=== PATIENT | male | born 1970 | race Caucasian/White ===

== ENCOUNTER → 2022-06-07 | Outpatient (CLI) | payer OTHER ==
[~2022-06-07] MED LIST: CETI-24 PO; EXCETAB22 PO; FAMO20TA PO; K-TA10TA PO; LEVOTAB10 PO; LEXA1TAB2 PO; LOSA100T45 PO; PRAZ2CAP PO; TOPA1TAB PO; VITAD1000T PO
== END ==
LOC: M LABSMTC 11:24
PROVIDERS: ATTEND Anesthesiology
DX: Z01.812 Encounter for preprocedural laboratory examination (principal); Z11.52 Encounter for screening for COVID-19

== ENCOUNTER 2022-06-10 08:52 | Day surgery (SDC) | payer OTHER ==
[~2022-06-10] VITALS: Ht 177.8 cm; Wt 97.7 kg
[~2022-06-10 08:52] MED LIST changes: +NS 1,000 ML IV ONE
[2022-06-10] MEDS ORDERED: fentaNYL 100 MCG/2 ML INJECTION As Ordered ONE (12:01)
[2022-06-10] MEDS ORDERED: LIDOCAINE 2% 100MG/5ML SDV (FOR ANES.) As Ordered ONE (12:04)
[2022-06-10] MEDS ORDERED: propofoL 200 MG/20 ML VIAL As Ordered ONE ×2 (12:04→12:22)
[2022-06-10 13:10] VITALS: BP 154/95
== END 2022-06-10 13:48 | disposition home or self-care (01) ==
LOC: M OPP 08:52
PROVIDERS: ATTEND Internal Medicine Gastroenterology
DX: Z12.11 Encounter for screening for malignant neoplasm of colon (principal); K63.5 Polyp of colon; K57.30 Diverticulosis of large intestine without perforation or abscess without bleeding; K64.4 Residual hemorrhoidal skin tags; K64.8 Other hemorrhoids; K22.89 Other specified disease of esophagus; K29.70 Gastritis, unspecified, without bleeding; K29.80 Duodenitis without bleeding; K31.A15 Gastric intestinal metaplasia without dysplasia, involving multiple sites; F17.200 Nicotine dependence, unspecified, uncomplicated; Z79.1 Long term (current) use of non-steroidal anti-inflammatories (NSAID); Z79.899 Other long term (current) drug therapy; Z88.0 Allergy status to penicillin; Z88.8 Allergy status to other drugs, medicaments and biological substances; G62.9 Polyneuropathy, unspecified; G47.30 Sleep apnea, unspecified; I10 Essential (primary) hypertension; F43.10 Post-traumatic stress disorder, unspecified
CPT/HCPCS: 43239; 45385; 88305; J3010

== ENCOUNTER 2023-01-07 11:56 | Day surgery (SDC) | payer OTHER ==
[~2023-01-07] VITALS: Ht 182.9 cm; Wt 101.0 kg
[2023-01-07] MEDS: NS 1,000 ML IV ONE (06:00)
[~2023-01-07 11:56] MED LIST changes: -K-TA10TA PO; -LOSA100T45 PO; +LOSA100T46 PO; -NS 1,000 ML IV ONE; +POTA-164 PO
[2023-01-07] MEDS ORDERED: propofoL 200 MG/20 ML VIAL As Ordered ONE (13:03)
[2023-01-07] MEDS ORDERED: LIDOCAINE 2% 100MG/5ML SDV (FOR ANES.) As Ordered ONE (13:03)
[2023-01-07] MEDS ORDERED: ONDANSETRON 4MG 2ML VIAL As Ordered ONE (13:51)
[2023-01-07] MEDS ORDERED: ACETAMINOPHEN 1000MG 100ML IV BAG As Ordered ONE (13:52)
[2023-01-07] MEDS ORDERED: fentaNYL 100 MCG/2 ML INJECTION As Ordered ONE (13:59)
[2023-01-07 14:42] VITALS: TEMP 97.9
[2023-01-07 15:05] VITALS: BP 140/98; O2SAT 96
== END 2023-01-07 18:25 | disposition home or self-care (01) ==
LOC: M OPP 11:56
PROVIDERS: ATTEND Internal Medicine Gastroenterology
DX: K44.9 Diaphragmatic hernia without obstruction or gangrene (principal); K22.89 Other specified disease of esophagus; K31.89 Other diseases of stomach and duodenum; D62 Acute posthemorrhagic anemia; K29.01 Acute gastritis with bleeding
CPT/HCPCS: 43239; 88305; J0131; J2405; J3010

== ENCOUNTER → 2023-02-09 | Outpatient (CLI) | payer OTHER ==
[2023-02-09 17:24] LABS: BASO % 0.3 % (0.0-1.0); EOS # 0.4 10^3/uL (0.0-0.5); EOS % 5.6 % (0.0-3.0); HEMATOCRIT 47.3 % (42.0-52.0); HEMOGLOBIN 16.4 g/dl (13.5-17.5); LYMPH # 3.2 10^3/uL (1.5-5.0); LYMPH % 40.5 % (24.0-44.0); MEAN CORPUSCULAR HEMOGLOBIN 33.3 pg (27.0-33.0); MEAN CORPUSCULAR HGB CONC 34.7 g/dl (32.0-36.5); MEAN CORPUSCULAR VOLUME 95.9 fl (80.0-96.0); MONO # 0.8 10^3/uL (0.0-0.8); NEUTROPHILS # 3.4 10^3/uL (1.5-8.5); NEUTROPHILS % 42.6 % (36.0-66.0); PLATELET COUNT, AUTOMATED 217 10^3/uL (150-450); RED BLOOD COUNT 4.93 10^6/uL (4.30-6.10); WHITE BLOOD COUNT 7.9 10^3/uL (4.0-10.0)
[2023-02-09 17:42] LABS: BLOOD UREA NITROGEN 14 MG/DL (9-23); CREATININE FOR GFR 0.96 MG/DL (0.70-1.30); FERRITIN 49.2 NG/ML (10.5-307.3); GLOMERULAR FILTRATION RATE > 60.0 (>56); IMMUNOGLOBULIN A 253.5 MG/DL (40-350); IRON (FE) 75 UG/DL (65-175); PERCENT SATURATION 20.8 % (19.7-50.0); TOTAL IRON BINDING CAPACITY 360 UG/DL (250-425)
[2023-02-09 17:43] LABS: FOLATE 6.5 NG/ML (>5.4); VITAMIN B12 LEVEL 342 PG/ML (211-911)
[2023-02-11 17:07] LABS: TISSUE TRANSGLUTAMINASE IgA <2 U/mL (0-3); UNITSIGA FOR GLIADIN IGA 6 units (0-19); UNITSIGG FOR GLIADIN IGG 9 units (0-19)
== END ==
LOC: M PLALAB 15:36
PROVIDERS: ATTEND Internal Medicine Gastroenterology
DX: K90.0 Celiac disease (principal)

== ENCOUNTER → 2023-08-11 | Outpatient (CLI) | payer OTHER | LOC: M PLARAD 14:59 | PROVIDERS: ATTEND Nurse Practitioner Family | DX: G43.109 Migraine with aura, not intractable, without status migrainosus (principal) ==

== ENCOUNTER → 2023-08-23 | Outpatient (CLI) | payer OTHER | LOC: M RAD 15:37 | PROVIDERS: ATTEND Nurse Practitioner Family | DX: Z87.891 Personal history of nicotine dependence (principal) ==